=== PATIENT | male | born 1960 | race Caucasian/White ===

== ENCOUNTER 2021-07-19 19:59 | Inpatient (IN) | payer MEDICARE, MEDICAID, SELFPAY ==
[2021-07-19 20:15] VITALS: BP 122/71; PULSE 91; RESP 22; TEMP 35.5; O2SAT 88; O2SAT 89
--- NOTE | 2021-07-19 22:47 | HPE_ITS ---
Date of service: 07/19/21 Time of Service: 22:47 Assessment and Plan Assessment and plan (1) COVID: Status: Acute Assessment and plan: He seems to be stable currently on oxygen. Will be continued on dexamethasone daily. I am checking other labs but at this time I do not think he needs antibiotics for bacterial infection. We will recheck labs tomorrow. (2) Obesity: Status: Chronic Assessment and plan: This obesity could complicate his recovery from Covid. It would make him a higher risk for complications. (3) Renal failure: Status: Chronic Assessment and plan: I talked with the staff at [facility] and his creatinine 2 weeks ago was 2.0. They said he had no other labs and their system. This will be rechecked tomorrow. (4) LBBB (left bundle branch block): Status: Acute Assessment and plan: I developed this left bundle branch block pattern is new today or not. We have asked for previous electrocardiograms. History of Present Illness History of Present Illness Chief Complaint: hemoptysis Narrative: This 61-year-old male was transferred here from [facility] because of coronavirus 19 infection. He received his immunizations monitoring of 2 doses in November and December of this year. He states that for the last 2 days he has had a coppery taste in his mouth. He has not had a cough but today he did have a productive sputum of some hemoptysis and mucus. He went to [facility] he was evaluated and was found to have O2 saturations of 84% on 2 L nasal cannula. He had a follow-up on his second left toe amputation with orthopedics 2 days ago in [facility] and was told that his oxygen levels were low. He has been on oxygen for the last 3 years due to his chronic obstructive lung disease and says he has not been on oxygen for the last month. He has had no known Covid exposure that he is aware of. His who he lives with has been sick with an upper respiratory infection. He has not been consistent with wearing masks around town. He presented to the [facility] today is blood pressure was a bit low at 90/50 and with intravenous fluids the blood pressure came up to 100/60. By report the creatinine level down July 03 was 2.0 but it was up to 2.8 today. He has had 3 pneumococcal vaccines with the last one being done in 2019 and a flu shot was done in May of last year. He was hoping to get his booster vaccine of the Covid soon. He normally goes to the [facility] but the doctor at the [facility] dental said that they could not reach the [facility] about transferring a letter. At [facility] he did receive Decadron, cefepime and vancomycin. He has chronic medical problems of coronary artery disease, diabetes mellitus obesity sleep apnea COPD, sciatica restless legs and hypertension. Review of Systems Constitutional Constitutional: Denies chills, Denies fatigue and Denies fever(s) Cardiovascular Cardiovascular: Denies chest pain and Denies dyspnea Respiratory Respiratory: Reports cough, Reports hemoptysis and Denies dyspnea Gastrointestinal Gastrointestinal: Denies diarrhea, Denies loose stools, Denies nausea and Denies vomiting Genitourinary Genitourinary: Denies dysuria, Denies urinary frequency and Denies urinary hesitancy Musculoskeletal Musculoskeletal: Denies muscle weakness Endocrine Endocrine: Denies fatigue [facility] Medical History (Updated 07/19/21 @ 22:57 by Trevon Bee MD) CAD (coronary artery disease) COPD (chronic obstructive pulmonary disease) (~09/07/19) Diabetes mellitus (~09/07/19) Hypertension (~09/07/19) Obesity ALEJANDRA (obstructive sleep apnea) (~09/07/19) Restless leg Sciatic leg pain Social History Smoking/Tobacco Use Status: Former Tobacco Use Smoking risk assessment performed?: Yes Meds Allergies and Home Medications Allergies Allergy/AdvReac Type Severity Reaction Status Date / Time codeine Allergy Unverified 07/19/21 21:15 Gadolinium-Containing Allergy Unverified 07/19/21 21:15 Contrast Medi Penicillins Allergy Unverified 07/19/21 21:16 Home Medications Medication Instructions Recorded Confirmed Type acetaminophen 500 mg PO Q6H PRN 07/19/21 07/19/21 History albuterol sulfate [ProAir HFA] 2 puff INHALATION BID PRN 07/19/21 07/19/21 History atorvastatin 40 mg PO DAILY 07/19/21 07/19/21 History cholecalciferol (vitamin D3) 25 mcg PO DAILY 07/19/21 07/19/21 History [Vitamin D3] fexofenadine [Ashanti Allergy] 180 mg PO BID 07/19/21 07/19/21 History tetkhtnbphl-inxylpaha-eiarliva 1 inh INHALATION DAILY 07/19/21 07/19/21 History [Trelegy Ellipta] gabapentin 600 mg PO BID 07/19/21 07/19/21 History glipizide 20 mg PO HS 07/19/21 07/19/21 History hydrochlorothiazide 25 mg PO DAILY 07/19/21 07/19/21 History lisinopril 40 mg PO DAILY 07/19/21 07/19/21 History metformin 500 mg PO BID 07/19/21 07/19/21 History metoprolol tartrate 150 mg PO BID 07/19/21 07/19/21 History bvnekqpo-aps-wxacarm fumarate See Rx Instructions .ROUTE .COMPLEX 07/19/21 History [Multi Vitamin] nitroglycerin [Nitrostat] 0.4 mg SUBLINGUAL Q5-15M PRN 07/19/21 07/19/21 History omega 7-isu-yhm-fish oil [Fish Oil] cap PO BID 07/19/21 History omeprazole 20 mg PO DAILY 07/19/21 07/19/21 History ropinirole 4 mg PO QHS 07/19/21 07/19/21 History tamsulosin 0.4 mg PO DAILY 07/19/21 07/19/21 History Exam Const General: cooperative, comfortable and no acute distress Nutritional Appearance: obese Orientation: alert and awake Neck Neck: normal visual inspection and no lymphadenopathy Thyroid: thyroid normal Resp Auscultation: rales, no rhonchi and no wheezes Other: Rales are present in the left midlung field. It is clear otherwise in both lungs. Cardio Rate: regular rate Rhythm: regular rhythm Heart Sounds: S1 normal, S2 normal, no gallops and no murmurs GI Palpation: soft, no hepatosplenomegaly, not rigid and nontender Neuro General: patient alert, patient awake and patient oriented x3 Cognition: normal cognition Extrem General: no pedal edema Results Labs Result diagrams: 07/19/21 22:19 07/19/21 22:20 Last Vital Signs Temp 35.5 C L 07/19/21 20:15 Pulse 91 H 07/19/21 20:15 Resp 22 07/19/21 20:15 BP 122/71 07/19/21 20:15 Pulse Ox 88 L 07/19/21 20:15
[2021-07-19 23:04] LABS: Abs Immature Grans 0.06 10^3/uL (0.0-0.06); Absolute Basophil Count 0.01 10^3/uL (0.0-0.2); Absolute Lymphocyte Count 0.49 10^3/uL (1.2-3.4); Absolute Monocyte Count 0.17 10^3/uL (0.1-0.8); Absolute Neutrophil Count 5.27 10^3/uL (1.2-6.7); Basophils % 0.2; HCT 42.6 % (40.0-50.0); HGB 13.9 g/dL (13.5-17.5); Lymphocytes % 8.2; MCH 28.2 pg (27.0-33.0); MCHC 32.6 % (32.0-36.0); MCV 86.4 fL (80-95); Monocytes % 2.8; Neutrophils % 87.8; Nucleated RBC 0 %; Platelet Count 142 10^3/uL (130-400); RBC 4.93 10^6/uL (4.36-5.78); RDW 14.9 % (11.8-14.1); RDW-SD 47.7 fL
[2021-07-19 23:20] LABS: ALT 41 U/L (16-63); AST 39 U/L (15-37); Albumin 2.8 g/dL (3.4-5.0); Alkaline Phosphatase 55 U/L (46-116); Anion Gap 12.8 mmol/L (3-11); BUN 54 mg/dL (7-18); Bilirubin, Total 0.6 mg/dL (0.2-1.0); C-Reactive Protein 7.91 mg/dL (0.0-0.3); CO2 20.2 mmol/L (21.0-32.0); CREATININE 2.1 mg/dL (0.70-1.30); Calcium 8.2 mg/dL (8.5-10.1); Chloride 104 mmol/L (98-107); Creatine Kinase 181 U/L (39-308); Estimated GFR 32.06 (mL/min/1.73m2); Glucose 218 mg/dL (74-106); LDH 328 U/L (85-227); Sodium 137 mmol/L (136-145); Total Protein 6.9 g/dL (6.4-8.2)
[2021-07-19 23:22] LABS: PTT Activated 28.8 sec (21.0-27.5)
[2021-07-19 23:33] VITALS: BP 112/68; PULSE 85; RESP 20; TEMP 35.3; O2SAT 90
[2021-07-19 23:39] LABS: Procalcitonin 0.1 ng/mL
[2021-07-19] MEDS: Normal Saline Flush 10 ML SYR IVP (23:45)
[2021-07-19 23:53] LABS: D-Dimer 1580 ng/mlFEU (<500)
[2021-07-20] VITALS (45 sets, daily range): BP systolic 89–131; BP diastolic 42–77; PULSE 68–89; RESP 15–26; TEMP 35.1–37.9; O2SAT 86–95
[2021-07-20] MEDS: rOPINIRole 0.5 MG TAB (00:58)
--- NOTE | 2021-07-20 04:47 | RESPIRATORY ---
Pt will contact in morning to bring home CPAP unit for NOC use.
[2021-07-20] MEDS: Fexofenadine 180 MG TAB PO ×2 (09:25→19:59)
[2021-07-20] MEDS: Metoprolol 50 MG TAB 150 MG PO ×2 (09:25→19:59)
[2021-07-20] MEDS: Tamsulosin 0.4 MG CAPCR PO (09:26)
[2021-07-20] MEDS: Omeprazole 20 MG CAPCR PO (09:26)
[2021-07-20] MEDS: Atorvastatin 40 MG TAB PO (09:26)
[2021-07-20] MEDS: Enoxaparin 30 MG/0.3 ML SYR SC (09:27)
[2021-07-20] MEDS: Gabapentin 300 MG CAP 600 MG PO ×2 (09:27→19:59)
[2021-07-20] MEDS: Dexamethasone 10 MG/ML VIAL 6 MG IVP (09:37)
[2021-07-20] MEDS: REMDESIVIR 200 MG in Normal Saline 250 ML 250 MG IVPB (09:55)
[2021-07-20] MEDS: hydroCHLOROthiazide 25 MG TAB PO (09:56)
[2021-07-20] MEDS: Insulin Aspart 300 UNITS/3 ML PEN SC ×3 (09:58→23:01)
[2021-07-20 10:25] LABS: Abs Immature Grans 0.05 10^3/uL (0.0-0.06); Absolute Basophil Count 0.01 10^3/uL (0.0-0.2); Absolute Lymphocyte Count 0.52 10^3/uL (1.2-3.4); Absolute Monocyte Count 0.43 10^3/uL (0.1-0.8); Absolute Neutrophil Count 3.42 10^3/uL (1.2-6.7); Basophils % 0.2; HCT 46.5 % (40.0-50.0); Immature Grans % 1.1; Lymphocytes % 11.7; MCH 27.7 pg (27.0-33.0); MCHC 32.3 % (32.0-36.0); MCV 85.8 fL (80-95); MPV 11.1 fL (8.0-11.0); Monocytes % 9.7; Neutrophils % 77.3; Nucleated RBC 0 %; Platelet Count 182 10^3/uL (130-400); RBC 5.42 10^6/uL (4.36-5.78); RDW 14.8 % (11.8-14.1); RDW-SD 46.7 fL; WBC 4.43 10^3/uL (4.4-10.8)
[2021-07-20 10:39] LABS: Anion Gap 11.8 mmol/L (3-11); BUN 46 mg/dL (7-18); C-Reactive Protein 7.35 mg/dL (0.0-0.3); CO2 22.2 mmol/L (21.0-32.0); CREATININE 1.7 mg/dL (0.70-1.30); Calcium 9.1 mg/dL (8.5-10.1); Chloride 105 mmol/L (98-107); Creatine Kinase 139 U/L (39-308); Estimated GFR 40.91 (mL/min/1.73m2); Glucose 169 mg/dL (74-106); Potassium 4.7 mmol/L (3.5-5.1); Sodium 139 mmol/L (136-145)
[2021-07-20 10:49] LABS: ALT 47 U/L (16-63); AST 37 U/L (15-37); Albumin 3.1 g/dL (3.4-5.0); Alkaline Phosphatase 59 U/L (46-116); Bilirubin, Direct 0.3 mg/dL (0.0-0.2); Bilirubin, Total 0.8 mg/dL (0.2-1.0); Magnesium 2.4 mg/dL (1.8-2.4); NT-proBNP 713 pg/mL (<300); TSH (W/Ref FT4) 0.87 uIU/mL (0.36-3.74)
--- NOTE | 2021-07-20 10:56 | NUR.NOTE ---
Nursing Note: Patient up to bedside commode and noted to have increase shortness of breath, o2 saturation decreased into low 80's, nurse increase oxygen to 10 liters, encouraged deep breathing, o2 saturation increased to 93%. Patient completed bowel movement and voided. Nurse used walker for safety and support, patient back in bed with minimal decrease in O2 saturation though patient noted to be short of breath. Once in bed oxygen reduced to 6 liter, O2 sat 91%, nurse will update team.
[2021-07-20 11:17] LABS: D-Dimer 1768 ng/mlFEU (<500)
[2021-07-20 11:33] LABS: Ferritin 1676 ng/mL (26-388)
--- NOTE | 2021-07-20 13:04 | PDOC.CMIN ---
- If Service Date Differs Date of service: 07/20/21 Time of Service: 13:04 Care Management Initial Assess REASON FOR HOSPITALIZATION:: Covid Pneumonia PAST MEDICAL HISTORY/PAST SURGICAL HISTORY:: Medical History (Updated 07/19/21 @ 22:57 by Trevon Bee MD). CAD (coronary artery disease). COPD (chronic obstructive pulmonary disease) (~09/07/19). Diabetes mellitus (~09/07/19). Hypertension (~09/07/19). Obesity. ALEJANDRA (obstructive sleep apnea) (~09/07/19). Restless leg. Sciatic leg pain PREVIOUS FUNCTIONAL STATUS/SOCIAL/FAMILY SUPPORTS:: Trevon lives in a single family home in [place], [place] with his Randi. Trevon has one son who lives in [place] and Randi has a son and a daughter. Her son lives out of state and her daughter is in [place] but they rarely visit. Trevon has been disabled since the when he was injured in the . He uses a cane for ambulation and has a stair lift provided by the [facility]. CURRENT FUNCTIONAL STATUS:: CLIVE was unable to meet with Trevon as her is on Covid isolation. He was admitted to Med-Surg but was transferred to ICU this afternoon when his breathing became more difficult. CLIVE was able to speak to his Randi on the phone. She stated that she is well and has tested negative for Covid. She is fully vaccinated against Covid as was Trevon. ADVANCE DIRECTIVES:: Trevon does not have advanced directives. CM will discuss when he is more stable. Has patient been provided with info about the portal/API?: Yes Did the patient sign up for the portal?: No CODE STATUS:: Full Code INSURANCE COVERAGE / FINANCIAL ISSUES:: Medicare. Medicaid CURRENT HOME/COMMUNITY SERVICES/EQUIPMENT:: cane and a stair lift PRIMARY CARE PHYSICIAN:: Dr. Trevon Hart [facility] [place] POTENTIAL DISCHARGE NEEDS:: Follow up with PCP and plan of care PATIENT/FAMILY EDUCATION NEEDS:: Review discharge instructions, medications, activity, limitations, Ask Me Three TRANSPORTATION:: likely via private vehicle with PLAN:: Trevon will likely be discharged home, possibly with new home health services, when medically cleared. He will follow up with his PCP and plan of care and transport with his . CM will continue to support Shorty and assess for discharge planning concerns.
[2021-07-20 13:09] LABS: BE -5 mmol/L (-2-3); HCO3 20 mmol/L (22-26); pCO2 32 mmHg (35-45); pO2 46 mmHg (80-105); sO2 84 % (95-98); tCO2 17 mmol/L (23-27)
[2021-07-20 13:11] LABS: FIO2L 6 L; Site Left Radial
--- NOTE | 2021-07-20 13:32 | PGE_ITS ---
Date of Service Date of service: 07/20/21 Time of Service: 13:32 Assessment and Plan Assessment and plan (1) Pneumonia due to COVID-19 virus: Status: Acute Assessment and plan: Resulting in acute on possibly chronic hypoxic respiratory failure. He is fully vaccinated against COVID-19 (last dose in December of 2020, Moderna). The patient stopped wearing O2 1.5 years ago, he states, because the doctors told him to dial back on it, but [facility]. The patient remains hypoxemic despite 6L of O2 by MI. He is being transferred to the ICU for CPAP therapy. Continue remdesivir, dexamethasone, and baricitinib. Supplement Vitamin C, D. He is full code as confirmed by my conversation with him. (2) Acute respiratory failure with hypoxia: Status: Acute Assessment and plan: As above (3) ALEJANDRA (obstructive sleep apnea): Status: Chronic Assessment and plan: Provide home CPAP, though the settings may have to be adjusted due to COVID-19. (4) LBBB (left bundle branch block): Status: Chronic Assessment and plan: This was reviewed with [facility] cardiology by [facility]: LBBB is old. Repeat troponin. As far as I can tell, he had negative troponins in [facility]. Continue home therapy (resume fish oil, statin). Will clarify if the patient is on ASA. (5) COPD (chronic obstructive pulmonary disease): Status: Chronic Assessment and plan: Not clearly in acute exacerbation. Will monitor. On trelegy at home. Will cover with symbicort +combivent here. (6) Acute kidney injury superimposed on chronic kidney disease: Status: Acute Assessment and plan: Improved. Suspect I can resume home ACEi tomorrow. (7) Diabetes mellitus: Status: Chronic Assessment and plan: D/c glipizide. Continue to hold metformin. Cover with SSI. (8) Hemoptysis: Status: Resolved Assessment and plan: PE ruled out by CTA at [facility], per admitting provider. We are awaiting this imaging. Continue to monitor. Will resume fish oil. Continue enoxaparin. (9) Discharge planning issues: Status: Acute Assessment and plan: Full code Transfer to the ICU. Total Critical Care Time 60 minutes. (10) DVT prophylaxis: Status: Acute Assessment and plan: Enoxaparin SC Subjective Subjective Interval history since last seen: The patient states he has not seen any more blood in what he has coughed up. In fact, he denies sputum production since arrival to the hospital. Denies dizziness, chest pain, shortness of breath, nausea. Per nursing/RT, has not been able to prone. The patient agrees to alternate sides and I specifically asked him not to lay on his back and explained why. He verbalized understanding. He is full code. On ABG, his O2 sat was 84% and pO2 was 46 mmHg while on 6L of O2 by NC (has been on this for 1 hr). He agrees to transfer to the ICU. His CPAP was brought in. [facility]. He is upset that his joanie art and his underwear were not allowed in from home. Exam Narrative Exam Narrative: General: Pleasant obese male who is laying flat on his back when I arrived to his room, on NC at 6L, A&Ox3, no dyspnea/tachypnea/cyanosis HEENT: EOMI, MMM Heart: RRR, no m/r/g Lungs: faint rhonchi B Abdomen: soft, obese, nontender Extremities: no edema BLE's, L foot dressed - c/d/i Objective Last Vital Signs Temp 36 C L 07/20/21 11:02 Pulse 80 07/20/21 11:02 Resp 16 07/20/21 11:02 BP 113/65 07/20/21 11:02 Pulse Ox 91 L 07/20/21 11:02 Laboratory Results - last 24 hr 07/19/21 07/19/21 07/19/21 22:55 22:55 22:55 WBC 6.00 RBC 4.93 Hgb 13.9 Hct 42.6 MCV 86.4 MCH 28.2 MCHC 32.6 RDW 14.9 H Plt Count 142 MPV 11.0 Immature Gran % 1.0 Neutrophils % 87.8 Lymphocytes % 8.2 Monocytes % 2.8 Eosinophils % 0.0 Basophils % 0.2 Nucleated RBC % 0 Absolute Neutrophils 5.27 Absolute Lymphocytes 0.49 L Absolute Monocytes 0.17 Absolute Eosinophils 0.00 Absolute Basophils 0.01 PT INR APTT D-Dimer 1580 H ABG Sample Site ABG pH ABG pCO2 ABG pO2 ABG HCO3 ABG Total CO2 ABG O2 Saturation ABG Base Excess Oxygen Liter Flow Sodium 137 Potassium 5.0 Chloride 104 Carbon Dioxide 20.2 L Anion Gap 12.8 H BUN 54 H Creatinine 2.1 H Estimated GFR/1.73 m2 32.06 Glucose 218 H Calcium 8.2 L Magnesium Ferritin Total Bilirubin 0.6 Conjugated Bilirubin AST 39 H ALT 41 Alkaline Phosphatase 55 Lactate Dehydrogenase Creatine Kinase C-Reactive Protein 7.91 H NT-Pro-B Natriuret Pep Total Protein 6.9 Albumin 2.8 L Procalcitonin TSH 07/19/21 07/19/21 07/19/21 22:55 22:55 22:55 WBC RBC Hgb Hct MCV MCH MCHC RDW Plt Count MPV Immature Gran % Neutrophils % Lymphocytes % Monocytes % Eosinophils % Basophils % Nucleated RBC % Absolute Neutrophils Absolute Lymphocytes Absolute Monocytes Absolute Eosinophils Absolute Basophils PT 10.0 INR 1.0 APTT D-Dimer ABG Sample Site ABG pH ABG pCO2 ABG pO2 ABG HCO3 ABG Total CO2 ABG O2 Saturation ABG Base Excess Oxygen Liter Flow Sodium Potassium Chloride Carbon Dioxide Anion Gap BUN Creatinine Estimated GFR/1.73 m2 Glucose Calcium Magnesium Ferritin Total Bilirubin Conjugated Bilirubin AST ALT Alkaline Phosphatase Lactate Dehydrogenase 328 H Creatine Kinase 181 C-Reactive Protein NT-Pro-B Natriuret Pep Total Protein Albumin Procalcitonin 0.1 TSH 07/19/21 07/20/21 07/20/21 22:55 10:05 10:05 WBC RBC Hgb Hct MCV MCH MCHC RDW Plt Count MPV Immature Gran % Neutrophils % Lymphocytes % Monocytes % Eosinophils % Basophils % Nucleated RBC % Absolute Neutrophils Absolute Lymphocytes Absolute Monocytes Absolute Eosinophils Absolute Basophils PT INR APTT 28.8 H D-Dimer ABG Sample Site ABG pH ABG pCO2 ABG pO2 ABG HCO3 ABG Total CO2 ABG O2 Saturation ABG Base Excess Oxygen Liter Flow Sodium 139 Potassium 4.7 Chloride 105 Carbon Dioxide 22.2 Anion Gap 11.8 H BUN 46 H Creatinine 1.7 H Estimated GFR/1.73 m2 40.91 Glucose 169 H Calcium 9.1 Magnesium 2.4 Ferritin 1676 H Total Bilirubin 0.8 Conjugated Bilirubin 0.3 H AST 37 ALT 47 Alkaline Phosphatase 59 Lactate Dehydrogenase Creatine Kinase 139 C-Reactive Protein 7.35 H NT-Pro-B Natriuret Pep 713 H Total Protein 8.0 Albumin 3.1 L Procalcitonin TSH 0.87 07/20/21 07/20/21 07/20/21 10:05 10:05 13:02 WBC 4.43 RBC 5.42 Hgb 15.0 Hct 46.5 MCV 85.8 MCH 27.7 MCHC 32.3 RDW 14.8 H Plt Count 182 MPV 11.1 H Immature Gran % 1.1 Neutrophils % 77.3 Lymphocytes % 11.7 Monocytes % 9.7 Eosinophils % 0.0 Basophils % 0.2 Nucleated RBC % 0 Absolute Neutrophils 3.42 Absolute Lymphocytes 0.52 L Absolute Monocytes 0.43 Absolute Eosinophils 0.00 Absolute Basophils 0.01 PT INR APTT D-Dimer 1768 H ABG Sample Site Left Radial ABG pH 7.40 ABG pCO2 32 L ABG pO2 46 L ABG HCO3 20 L ABG Total CO2 17 L ABG O2 Saturation 84 L ABG Base Excess -5 L Oxygen Liter Flow 6 Sodium Potassium Chloride Carbon Dioxide Anion Gap BUN Creatinine Estimated GFR/1.73 m2 Glucose Calcium Magnesium Ferritin Total Bilirubin Conjugated Bilirubin AST ALT Alkaline Phosphatase Lactate Dehydrogenase Creatine Kinase C-Reactive Protein NT-Pro-B Natriuret Pep Total Protein Albumin Procalcitonin TSH
[2021-07-20 14:31] LABS: Troponin I < 0.05 ng/mL (<0.06)
[2021-07-20] MEDS: Ipratropium/Albuterol 4 GM 120 PUFF INH IH ×2 (16:59→19:59)
--- NOTE | 2021-07-20 18:00 | RESPIRATORY ---
Pt has his own home BiPAP unit through [facility]. [id number] Auto BiPAP Max IPAP: 20 cmH2O Min EPAP: 10 cmH2O PS: 5 No O2 bleed in Mouth-mask wiht integrated nasal pillows. Size Small. Pt also uses home O2, 2L via nasal cannula. Pt reported that he stopped using it for a while and recently started using it again. Home O2 is through [facility] and distributed through [id number].
[2021-07-20] MEDS: Budesonide/Formoterol 80/4.5 6.9 GM 60 PUFF INH IH (19:58)
[2021-07-20] MEDS: Ascorbic Acid 500 MG TAB 1000 MG PO (19:59)
[2021-07-20] MEDS: rOPINIRole 1 MG TAB 4 MG PO (22:03)
[2021-07-20] MEDS: Melatonin 3 MG TAB PO (22:03)
[2021-07-21] VITALS (70 sets, daily range): BP systolic 83–139; BP diastolic 43–89; PULSE 64–90; RESP 9–29; TEMP 35.8–36.9; O2SAT 82–95
[2021-07-21 07:03] LABS: Abs Immature Grans 0.13 10^3/uL (0.0-0.06); Absolute Basophil Count 0.02 10^3/uL (0.0-0.2); Absolute Lymphocyte Count 0.92 10^3/uL (1.2-3.4); Absolute Monocyte Count 0.77 10^3/uL (0.1-0.8); Basophils % 0.2; HCT 46.2 % (40.0-50.0); HGB 15.1 g/dL (13.5-17.5); Immature Grans % 1.6; Lymphocytes % 11.2; MCHC 32.7 % (32.0-36.0); MCV 85.7 fL (80-95); MPV 10.5 fL (8.0-11.0); Monocytes % 9.4; Neutrophils % 77.6; Nucleated RBC 0 %; Platelet Count 221 10^3/uL (130-400); RBC 5.39 10^6/uL (4.36-5.78); RDW 14.5 % (11.8-14.1); RDW-SD 45.3 fL; WBC 8.18 10^3/uL (4.4-10.8)
[2021-07-21 07:08] LABS: Absolute Neutrophil Count 6.35 10^3/uL (1.2-6.7)
[2021-07-21 07:22] LABS: ALT 34 U/L (16-63); AST 29 U/L (15-37); Alkaline Phosphatase 58 U/L (46-116); Anion Gap 10.9 mmol/L (3-11); BUN 44 mg/dL (7-18); Bilirubin, Direct 0.2 mg/dL (0.0-0.2); Bilirubin, Total 0.8 mg/dL (0.2-1.0); C-Reactive Protein 3.33 mg/dL (0.0-0.3); CO2 23.1 mmol/L (21.0-32.0); CREATININE 1.5 mg/dL (0.70-1.30); Calcium 9.3 mg/dL (8.5-10.1); Chloride 104 mmol/L (98-107); Estimated GFR 47.27 (mL/min/1.73m2); Glucose 155 mg/dL (74-106); Magnesium 2.4 mg/dL (1.8-2.4); Potassium 4.5 mmol/L (3.5-5.1); Sodium 138 mmol/L (136-145); Total Protein 7.4 g/dL (6.4-8.2)
[2021-07-21] MEDS: Budesonide/Formoterol 80/4.5 6.9 GM 60 PUFF INH IH ×2 (07:45→20:01)
[2021-07-21] MEDS: Ipratropium/Albuterol 4 GM 120 PUFF INH IH ×4 (07:46→20:02)
[2021-07-21] MEDS: Metoprolol 50 MG TAB 150 MG PO ×2 (07:57→20:01)
[2021-07-21] MEDS: Multivitamin w/Minerals TAB 1 TAB PO (07:58)
[2021-07-21] MEDS: Atorvastatin 40 MG TAB PO (07:58)
[2021-07-21] MEDS: Fexofenadine 180 MG TAB PO ×2 (07:58→20:01)
[2021-07-21] MEDS: Gabapentin 300 MG CAP 600 MG PO ×2 (07:58→20:01)
[2021-07-21] MEDS: Dexamethasone 10 MG/ML VIAL 6 MG IVP (07:59)
[2021-07-21] MEDS: Omega-3 Fatty Acids 1000 MG CAP 2000 MG PO (08:00)
[2021-07-21] MEDS: Enoxaparin 40 MG/0.4 ML SYR SC (08:00)
[2021-07-21] MEDS: hydroCHLOROthiazide 25 MG TAB PO (08:00)
[2021-07-21] MEDS: Tamsulosin 0.4 MG CAPCR PO (08:03)
[2021-07-21] MEDS: Cholecalciferol (Vitamin D3) 1,000 UNIT TAB 1000 UNITS PO (08:03)
[2021-07-21] MEDS: Ascorbic Acid 500 MG TAB 1000 MG PO ×2 (08:03→20:01)
[2021-07-21] MEDS: Famotidine 20 MG TAB PO (08:04)
[2021-07-21] MEDS: Normal Saline Flush 10 ML SYR IVP ×2 (08:04→20:00)
[2021-07-21] MEDS: Insulin Aspart 300 UNITS/3 ML PEN SC ×4 (08:06→21:18)
--- NOTE | 2021-07-21 08:17 | PGE_ITS ---
Date of Service Date of service: 07/21/21 Time of Service: 11:16 Assessment and Plan Assessment and plan (1) Pneumonia due to COVID-19 virus: Status: Acute Assessment and plan: Oxygen requirement is slightly better. Wean as tolerated and encourage CPAP at night. Continue to monitor in the ICU. Continue remdesivir, dexamethasone, and baricitinib. Supplement Vitamin C, D. (2) Acute respiratory failure with hypoxia: Status: Acute Assessment and plan: As above (3) ALEJANDRA (obstructive sleep apnea): Status: Chronic Assessment and plan: Continue CPAP (with settings adjusted based on current O2 requirement). (4) LBBB (left bundle branch block): Status: Chronic Assessment and plan: This was reviewed with [facility] cardiology by [facility]: LBBB is old. Troponin negative and was negative at [facility]. Follow up as outpatient. Continue home therapy (resume fish oil, statin). (5) COPD (chronic obstructive pulmonary disease): Status: Chronic Assessment and plan: Not clearly in acute exacerbation. Will monitor. On trelegy at home. Continue symbicort +combivent here. (6) Acute kidney injury superimposed on chronic kidney disease: Status: Acute Assessment and plan: Improved. Resume home ACEi. (7) Diabetes mellitus: Status: Chronic Assessment and plan: Continue to hold metformin/glipizide. Cover with SSI. (8) Hemoptysis: Status: Resolved Assessment and plan: PE ruled out by CTA at [facility], per admitting provider. No recurrences here. Continue to monitor. TOlerating fish oil and sq enoxaparin. (9) Discharge planning issues: Status: Acute Assessment and plan: Full code Keep in ICU Total Critical Care Time 35 minutes. (10) DVT prophylaxis: Status: Acute Assessment and plan: Enoxaparin SC Subjective Subjective Interval history since last seen: Mr Ahn states he is feeling better. He is on CPAP currently. Slept for a couple of hours on CPAP (4L, pressure 11, got titrated down to 3L this am). Otherwise, when on NC, still requiring 6L. Denies dizziness, chest pain, nausea, abdominal pain, diarrhea. States his breathing is better. Exam Narrative Exam Narrative: General: Pleasant obese male, laying on his left side, wearing CPAP HEENT: EOMI, MMM Heart: RRR, no m/r/g Lungs: faint rhonchi B, improved from yesterday Abdomen: soft, obese, nontender Extremities: no edema BLE's, L foot dressed - c/d/i Objective Last Vital Signs Temp 36.9 C 07/21/21 04:00 Pulse 78 07/21/21 05:22 Resp 22 07/21/21 05:30 BP 119/75 07/21/21 05:22 Pulse Ox 90 L 07/21/21 07:53 Laboratory Results - last 24 hr 07/20/21 07/20/21 07/20/21 10:05 10:05 10:05 WBC 4.43 RBC 5.42 Hgb 15.0 Hct 46.5 MCV 85.8 MCH 27.7 MCHC 32.3 RDW 14.8 H Plt Count 182 MPV 11.1 H Immature Gran % 1.1 Neutrophils % 77.3 Lymphocytes % 11.7 Monocytes % 9.7 Eosinophils % 0.0 Basophils % 0.2 Nucleated RBC % 0 Absolute Neutrophils 3.42 Absolute Lymphocytes 0.52 L Absolute Monocytes 0.43 Absolute Eosinophils 0.00 Absolute Basophils 0.01 D-Dimer ABG Sample Site ABG pH ABG pCO2 ABG pO2 ABG HCO3 ABG Total CO2 ABG O2 Saturation ABG Base Excess Oxygen Liter Flow Sodium 139 Potassium 4.7 Chloride 105 Carbon Dioxide 22.2 Anion Gap 11.8 H BUN 46 H Creatinine 1.7 H Estimated GFR/1.73 m2 40.91 Glucose 169 H Calcium 9.1 Magnesium 2.4 Ferritin 1676 H Total Bilirubin 0.8 Conjugated Bilirubin 0.3 H AST 37 ALT 47 Alkaline Phosphatase 59 Creatine Kinase 139 Troponin I < 0.05 C-Reactive Protein 7.35 H NT-Pro-B Natriuret Pep 713 H Total Protein 8.0 Albumin 3.1 L TSH 0.87 07/20/21 07/20/21 07/21/21 10:05 13:02 06:50 WBC RBC Hgb Hct MCV MCH MCHC RDW Plt Count MPV Immature Gran % Neutrophils % Lymphocytes % Monocytes % Eosinophils % Basophils % Nucleated RBC % Absolute Neutrophils Absolute Lymphocytes Absolute Monocytes Absolute Eosinophils Absolute Basophils D-Dimer 1768 H ABG Sample Site Left Radial ABG pH 7.40 ABG pCO2 32 L ABG pO2 46 L ABG HCO3 20 L ABG Total CO2 17 L ABG O2 Saturation 84 L ABG Base Excess -5 L Oxygen Liter Flow 6 Sodium 138 Potassium 4.5 Chloride 104 Carbon Dioxide 23.1 Anion Gap 10.9 BUN 44 H Creatinine 1.5 H Estimated GFR/1.73 m2 47.27 Glucose 155 H Calcium 9.3 Magnesium 2.4 Ferritin Total Bilirubin 0.8 Conjugated Bilirubin 0.2 AST 29 ALT 34 Alkaline Phosphatase 58 Creatine Kinase Troponin I C-Reactive Protein 3.33 H NT-Pro-B Natriuret Pep Total Protein 7.4 Albumin 3.0 L TSH 07/21/21 06:50 WBC 8.18 D RBC 5.39 Hgb 15.1 Hct 46.2 MCV 85.7 MCH 28.0 MCHC 32.7 RDW 14.5 H Plt Count 221 MPV 10.5 Immature Gran % 1.6 Neutrophils % 77.6 Lymphocytes % 11.2 Monocytes % 9.4 Eosinophils % 0.0 Basophils % 0.2 Nucleated RBC % 0 Absolute Neutrophils 6.35 Absolute Lymphocytes 0.92 L Absolute Monocytes 0.77 Absolute Eosinophils 0.00 Absolute Basophils 0.02 D-Dimer ABG Sample Site ABG pH ABG pCO2 ABG pO2 ABG HCO3 ABG Total CO2 ABG O2 Saturation ABG Base Excess Oxygen Liter Flow Sodium Potassium Chloride Carbon Dioxide Anion Gap BUN Creatinine Estimated GFR/1.73 m2 Glucose Calcium Magnesium Ferritin Total Bilirubin Conjugated Bilirubin AST ALT Alkaline Phosphatase Creatine Kinase Troponin I C-Reactive Protein NT-Pro-B Natriuret Pep Total Protein Albumin TSH
[2021-07-21 08:21] LABS: Ferritin 1491 ng/mL (26-388)
[2021-07-21 08:29] LABS: D-Dimer 1310 ng/mlFEU (<500)
[2021-07-21] MEDS: Lisinopril 20 MG TAB PO (09:30)
[2021-07-21] MEDS: rOPINIRole 1 MG TAB 4 MG PO (20:22)
[2021-07-21] MEDS: Melatonin 3 MG TAB PO (20:22)
[2021-07-22] VITALS (21 sets, daily range): BP systolic 104–135; BP diastolic 56–83; PULSE 52–75; RESP 10–23; TEMP 35.9–36.4; O2SAT 88–98
[2021-07-22 02:56] LABS: Vitamin D 25 Total 39.8 ng/mL (30-100)
[2021-07-22 07:26] LABS: HCT 47.4 % (40.0-50.0); HGB 15.4 g/dL (13.5-17.5); MCH 27.5 pg (27.0-33.0); MCHC 32.5 % (32.0-36.0); MCV 84.5 fL (80-95); MPV 10.9 fL (8.0-11.0); Nucleated RBC 0 %; Platelet Count 239 10^3/uL (130-400); RBC 5.61 10^6/uL (4.36-5.78); RDW 14.6 % (11.8-14.1); RDW-SD 44.6 fL
[2021-07-22 07:41] LABS: ALT 41 U/L (16-63); AST 25 U/L (15-37); Alkaline Phosphatase 58 U/L (46-116); Anion Gap 10.3 mmol/L (3-11); BUN 42 mg/dL (7-18); Bilirubin, Direct 0.2 mg/dL (0.0-0.2); Bilirubin, Total 0.7 mg/dL (0.2-1.0); C-Reactive Protein 1.61 mg/dL (0.0-0.3); CO2 22.7 mmol/L (21.0-32.0); CREATININE 1.3 mg/dL (0.70-1.30); Calcium 9.4 mg/dL (8.5-10.1); Chloride 104 mmol/L (98-107); Estimated GFR 55.75 (mL/min/1.73m2); Glucose 141 mg/dL (74-106); Magnesium 2.2 mg/dL (1.8-2.4); Potassium 4.3 mmol/L (3.5-5.1); Sodium 137 mmol/L (136-145); Total Protein 7.5 g/dL (6.4-8.2)
[2021-07-22 07:49] LABS: Procalcitonin < 0.1 ng/mL
[2021-07-22 07:51] LABS: Absolute Lymphocyte Count 0.72 10^3/uL (1.2-3.4); Absolute Monocyte Count 0.72 10^3/uL (0.1-0.8); Atypical Lymphocytes % 1; Diff Comment Manual Differential; Metamyelocytes % 3; Myelocytes % 1
[2021-07-22 07:52] LABS: RBC Morphology Normal
[2021-07-22 08:08] LABS: Ferritin 848 ng/mL (26-388)
[2021-07-22 08:25] LABS: D-Dimer 1046 ng/mlFEU (<500)
[2021-07-22] MEDS: Ipratropium/Albuterol 4 GM 120 PUFF INH IH ×4 (08:25→17:06)
[2021-07-22] MEDS: Budesonide/Formoterol 80/4.5 6.9 GM 60 PUFF INH IH ×2 (08:25→20:46)
--- NOTE | 2021-07-22 08:34 | PGE_ITS ---
Date of Service Date of service: 07/22/21 Time of Service: 12:32 Assessment and Plan Assessment and plan (1) Pneumonia due to COVID-19 virus: Status: Acute Assessment and plan: Improved. Ok to transfer out of the ICU to [facility]. Continue to wean O2 and CPAP at night (his own). Continue remdesivir, dexamethasone, and baricitinib. Supplement Vitamin C, D. (2) Acute respiratory failure with hypoxia: Status: Acute Assessment and plan: As above (3) ALEJANDRA (obstructive sleep apnea): Status: Chronic Assessment and plan: Continue CPAP (with settings adjusted based on current O2 requirement). (4) LBBB (left bundle branch block): Status: Chronic Assessment and plan: This was reviewed with [facility] cardiology by [facility]: LBBB is old. Troponin negative and was negative at [facility]. Follow up as outpatient. Continue home therapy (fish oil, statin). (5) COPD (chronic obstructive pulmonary disease): Status: Chronic Assessment and plan: Not clearly in acute exacerbation. Will monitor. On trelegy at home. Continue symbicort +combivent here. (6) Acute kidney injury superimposed on chronic kidney disease: Status: Acute Assessment and plan: Improved. Resume home ACEi. (7) Diabetes mellitus: Status: Chronic Assessment and plan: Continue to hold metformin/glipizide. Cover with SSI. (8) Hemoptysis: Status: Resolved Assessment and plan: PE ruled out by CTA at [facility], per admitting provider. No recurrences here. Continue to monitor. Tolerating fish oil and sq enoxaparin. (9) Discharge planning issues: Status: Acute Assessment and plan: Full code Transfer out of the ICU to [facility] floor. (10) DVT prophylaxis: Status: Acute Assessment and plan: Enoxaparin SC Subjective Subjective Interval history since last seen: Mr Ahn feels better. No dizziness, chest pain, shortness of breath, nausea. Has a sense of taste and is enjoying lunch at the time of my visit. Transitioned to 3L of O2 by [place]. States that in the past, when he did require oxygen, he needed 2L of O2. Overnight, used his CPAP w/ 3L bled in x 6 hrs. Exam Narrative Exam Narrative: General: Pleasant obese male, Sitting up in a chair eating lunch, A&Ox3, looks much better. No dyspnea/tachynpea/cyanosis. COmpleting sentences on 3L of O2 by [place]. HEENT: EOMI, MMM Heart: RRR, no m/r/g Lungs: CTAB Abdomen: soft, obese, nontender. Reddened skin folds. Extremities: no edema BLE's, L foot dressed - c/d/i Objective Last Vital Signs Temp 36 C L 07/22/21 04:20 Pulse 67 07/22/21 08:00 Resp 15 07/22/21 08:00 BP 129/79 07/22/21 08:00 Pulse Ox 94 07/22/21 08:00 Laboratory Results - last 24 hr 07/21/21 07/22/21 07/22/21 06:50 07:04 07:04 WBC RBC Hgb Hct MCV MCH MCHC RDW Plt Count MPV Immature Gran % Neutrophils % Lymphocytes % Atypical Lymphs % Monocytes % Eosinophils % Basophils % Metamyelocytes % Myelocytes % Nucleated RBC % Absolute Neutrophils Absolute Lymphocytes Absolute Monocytes Absolute Eosinophils Absolute Basophils RBC Morphology D-Dimer Sodium 137 Potassium 4.3 Chloride 104 Carbon Dioxide 22.7 Anion Gap 10.3 BUN 42 H Creatinine 1.3 Estimated GFR/1.73 m2 55.75 Glucose 141 H Calcium 9.4 Magnesium 2.2 Ferritin 848 H Total Bilirubin 0.7 Conjugated Bilirubin 0.2 AST 25 ALT 41 Alkaline Phosphatase 58 C-Reactive Protein 1.61 H Total Protein 7.5 Albumin 3.0 L 25-OH Vitamin D Total 39.8 Procalcitonin < 0.1 07/22/21 07/22/21 07:04 07:04 WBC 9.00 RBC 5.61 Hgb 15.4 Hct 47.4 MCV 84.5 MCH 27.5 MCHC 32.5 RDW 14.6 H Plt Count 239 MPV 10.9 Immature Gran % See Differential Neutrophils % 80.0 Lymphocytes % 7.0 Atypical Lymphs % 1 Monocytes % 8.0 Eosinophils % 0.0 Basophils % 0.0 Metamyelocytes % 3 Myelocytes % 1 Nucleated RBC % 0 Absolute Neutrophils 7.20 H Absolute Lymphocytes 0.72 L Absolute Monocytes 0.72 Absolute Eosinophils 0.00 Absolute Basophils 0.00 RBC Morphology Normal D-Dimer 1046 H Sodium Potassium Chloride Carbon Dioxide Anion Gap BUN Creatinine Estimated GFR/1.73 m2 Glucose Calcium Magnesium Ferritin Total Bilirubin Conjugated Bilirubin AST ALT Alkaline Phosphatase C-Reactive Protein Total Protein Albumin 25-OH Vitamin D Total Procalcitonin
[2021-07-22] MEDS: Normal Saline Flush 10 ML SYR IVP (08:40)
[2021-07-22] MEDS: Omega-3 Fatty Acids 1000 MG CAP 2000 MG PO (08:41)
[2021-07-22] MEDS: Enoxaparin 40 MG/0.4 ML SYR SC (08:41)
[2021-07-22] MEDS: Dexamethasone 10 MG/ML VIAL 6 MG IVP (08:41)
[2021-07-22] MEDS: Gabapentin 300 MG CAP 600 MG PO ×2 (08:42→20:46)
[2021-07-22] MEDS: Metoprolol 50 MG TAB 150 MG PO ×2 (08:42→20:45)
[2021-07-22] MEDS: Multivitamin w/Minerals TAB 1 TAB PO (08:42)
[2021-07-22] MEDS: Fexofenadine 180 MG TAB PO ×2 (08:42→20:45)
[2021-07-22] MEDS: Ascorbic Acid 500 MG TAB 1000 MG PO ×2 (08:42→20:45)
[2021-07-22] MEDS: Tamsulosin 0.4 MG CAPCR PO (08:43)
[2021-07-22] MEDS: Famotidine 20 MG TAB PO (08:43)
[2021-07-22] MEDS: hydroCHLOROthiazide 25 MG TAB PO (08:43)
[2021-07-22] MEDS: Atorvastatin 40 MG TAB PO (08:43)
[2021-07-22] MEDS: Lisinopril 20 MG TAB PO (08:43)
[2021-07-22] MEDS: Cholecalciferol (Vitamin D3) 1,000 UNIT TAB 1000 UNITS PO (08:43)
[2021-07-22] MEDS: Insulin Aspart 300 UNITS/3 ML PEN SC ×4 (09:25→22:29)
--- NOTE | 2021-07-22 10:52 | PDOC.CMPRO ---
- If Service Date Differs Date of service: 07/22/21 Time of Service: 10:52 Care Management Progress Note S/O:Trevon was moved out of the ICU back to Med-Surg today. CM was able to speak to him on the phone and he indicated that he is feeling much better. He is very appreciative of all of the wonderful care he received while in the ICU. Trevon shared that he has not been told when he will likely be discharged but anticipates that he will be here for a few more days. He also informed CM that he does not believe he will need any services at home and, if he does, that the [place] will provide them. A: Trevon is a 61 year old man admitted on 07/19/21 with Covid positive pneumonia P:Trevon will likely be discharged home, possibly with new home health services, when medically cleared. He will follow up with his PCP and plan of care and transport with his . CM will continue to support Trevon and Randi and assess for discharge planning concerns.
--- NOTE | 2021-07-22 11:14 | NUR.NOTE ---
While assisting with minimal help for AM care, this PHYSICIAN/ALLERGY/IMMUNOLOGY noticed blood on a wash cloth. I did ask the PT if he knew where it was coming from and PT said it was a spot on his R groin area [facility] RN notified. Nursing Note:
--- NOTE | 2021-07-22 11:47 | W.NUTRFU ---
Date of service: 07/22/21 Time of Service: 11:47 Nutritional Follow up NOTE: Mr. Ahn has excellent PO intake on CHO consistent/heart healthy nutrition therapy. His BMI is 37.6 kg/m2 c/2 class 2 obesity. Blood sugars at target. No nutritional issues noted at this time. Will continue to follow. Time Spent in Nutritional Counseling and Treatment: 0
[2021-07-22] MEDS: Nystatin POWDER 60 GM JAR TP ×2 (13:08→20:47)
[2021-07-22] MEDS: rOPINIRole 1 MG TAB 4 MG PO (22:28)
[2021-07-22] MEDS: Melatonin 3 MG TAB PO (22:28)
[2021-07-23] VITALS (10 sets, daily range): BP systolic 100–125; BP diastolic 60–76; PULSE 67–82; RESP 18–86; TEMP 36.2–36.5; O2SAT 18–98
[2021-07-23 03:42] LABS: Potassium 4.2 mmol/L (3.5-5.1)
[2021-07-23 03:45] LABS: Magnesium 2.2 mg/dL (1.8-2.4)
[2021-07-23 07:44] LABS: HCT 50.8 % (40.0-50.0); HGB 16.3 g/dL (13.5-17.5); MCH 27.7 pg (27.0-33.0); MCHC 32.1 % (32.0-36.0); MCV 86.2 fL (80-95); MPV 10.7 fL (8.0-11.0); Nucleated RBC 0 %; Platelet Count 253 10^3/uL (130-400); RBC 5.89 10^6/uL (4.36-5.78); RDW 14.6 % (11.8-14.1); RDW-SD 45.9 fL; WBC 11.76 10^3/uL (4.4-10.8)
[2021-07-23 08:04] LABS: ALT 41 U/L (16-63); AST 28 U/L (15-37); Albumin 3.4 g/dL (3.4-5.0); Alkaline Phosphatase 62 U/L (46-116); Anion Gap 12.1 mmol/L (3-11); BUN 39 mg/dL (7-18); Bilirubin, Direct 0.2 mg/dL (0.0-0.2); Bilirubin, Total 0.8 mg/dL (0.2-1.0); C-Reactive Protein 1.22 mg/dL (0.0-0.3); CO2 23.9 mmol/L (21.0-32.0); CREATININE 1.3 mg/dL (0.70-1.30); Chloride 103 mmol/L (98-107); Estimated GFR 55.75 (mL/min/1.73m2); Glucose 116 mg/dL (74-106); Sodium 139 mmol/L (136-145)
[2021-07-23] MEDS: Nystatin POWDER 60 GM JAR TP ×3 (08:15→20:41)
[2021-07-23 08:16] LABS: D-Dimer 864 ng/mlFEU (<500)
[2021-07-23] MEDS: Omega-3 Fatty Acids 1000 MG CAP 2000 MG PO (08:16)
[2021-07-23] MEDS: Famotidine 20 MG TAB PO (08:16)
[2021-07-23] MEDS: Lisinopril 20 MG TAB PO (08:16)
[2021-07-23] MEDS: Tamsulosin 0.4 MG CAPCR PO (08:16)
[2021-07-23] MEDS: hydroCHLOROthiazide 25 MG TAB PO (08:16)
[2021-07-23] MEDS: Atorvastatin 40 MG TAB PO (08:16)
[2021-07-23] MEDS: Cholecalciferol (Vitamin D3) 1,000 UNIT TAB 1000 UNITS PO (08:17)
[2021-07-23] MEDS: Ascorbic Acid 500 MG TAB 1000 MG PO ×2 (08:17→20:41)
[2021-07-23] MEDS: Enoxaparin 40 MG/0.4 ML SYR SC (08:17)
[2021-07-23] MEDS: Metoprolol 50 MG TAB 150 MG PO ×2 (08:17→20:40)
[2021-07-23] MEDS: Gabapentin 300 MG CAP 600 MG PO ×2 (08:17→20:41)
[2021-07-23] MEDS: Multivitamin w/Minerals TAB 1 TAB PO (08:17)
[2021-07-23] MEDS: Fexofenadine 180 MG TAB PO ×2 (08:17→20:40)
[2021-07-23] MEDS: Normal Saline Flush 10 ML SYR IVP ×2 (08:18→10:14)
[2021-07-23] MEDS: Ipratropium/Albuterol 4 GM 120 PUFF INH IH ×4 (08:19→20:46)
[2021-07-23 08:24] LABS: Absolute Lymphocyte Count 1.76 10^3/uL (1.2-3.4); Absolute Monocyte Count 1.18 10^3/uL (0.1-0.8); Bands % 3; Diff Comment Manual Differential; Myelocytes % 1; RBC Morphology Normal
[2021-07-23 08:26] LABS: Ferritin 695 ng/mL (26-388)
[2021-07-23] MEDS: Budesonide/Formoterol 80/4.5 6.9 GM 60 PUFF INH IH ×2 (09:02→20:42)
[2021-07-23] MEDS: Dexamethasone 10 MG/ML VIAL 6 MG IVP (09:29)
--- NOTE | 2021-07-23 09:32 | CMPROGNOTE_ITS ---
- If Service Date Differs Date of service: 07/23/21 Time of Service: 10:02 Care Management Progress Note S/O: Trevon stated he does not believe he will need any services at home and, if he does, that [facility]. Per RT, he is at his baseline for oxygen requirement. He also has wound follow up scheduled with [facility] in [place], [place]. CM to connect with [place] Jacqueline Mathis RNCC to determine PCP ([facility]) to support coordination of discharge information. CM continues to follow. A: Trevon is a 61 year old man admitted on 07/19/21 with Covid positive pneumonia P: Trevon will likely be discharged home, possibly with new home health services, when medically cleared. He will follow up with his PCP and plan of care and transport with his . CM will continue to support Shorty and assess for discharge planning concerns.
[2021-07-23] MEDS: Insulin Aspart 300 UNITS/3 ML PEN SC ×3 (12:01→20:52)
--- NOTE | 2021-07-23 16:53 | PGE_ITS ---
Date of Service Date of service: 07/23/21 Time of Service: 16:53 Assessment and Plan Assessment and plan (1) Pneumonia due to COVID-19 virus: Status: Acute Assessment and plan: Improved. On 2L of O2 by [place]. Continue to wean O2 and to use CPAP at night (his own). Continue remdesivir, dexamethasone, and baricitinib. Supplement Vitamin C, D. (2) Acute respiratory failure with hypoxia: Status: Acute Assessment and plan: As above (3) ALEJANDRA (obstructive sleep apnea): Status: Chronic Assessment and plan: Continue CPAP (with settings adjusted based on current O2 requirement). (4) LBBB (left bundle branch block): Status: Chronic Assessment and plan: This was reviewed with [facility] cardiology by [facility]: LBBB is old. Troponin negative and was negative at [facility]. Follow up as outpatient. Continue home therapy (fish oil, statin). (5) COPD (chronic obstructive pulmonary disease): Status: Chronic Assessment and plan: Not clearly in acute exacerbation. Will monitor. On trelegy at home. Continue symbicort +combivent here. (6) Acute kidney injury superimposed on chronic kidney disease: Status: Acute Assessment and plan: Improved. Continue home ACEi. (7) Diabetes mellitus: Status: Chronic Assessment and plan: Continue to hold metformin/glipizide. Cover with SSI. (8) Hemoptysis: Status: Resolved Assessment and plan: PE ruled out by CTA at [facility], per admitting provider. No recurrences here. Continue to monitor. Tolerating fish oil and sq enoxaparin. (9) Discharge planning issues: Status: Acute Assessment and plan: Full code Anticipate discharge home in the next 24-48 hrs. (10) DVT prophylaxis: Status: Acute Assessment and plan: Enoxaparin SC Subjective Subjective Interval history since last seen: Hungry. On 2L of O2. No cough. No SOB. No CP. No diarrhea. BM x 3 today. Has been walking around. Exam Narrative Exam Narrative: Today's visit is a telephone visit due to patient's stability and his diagnosis of COVID-19. General: the patient is in good spirits, no dyspnea/tachypnea on the phone, speaking in full sentences. Objective Last Vital Signs Temp 36.5 C 07/23/21 08:29 Pulse 78 07/23/21 08:29 Resp 18 07/23/21 08:29 BP 104/62 07/23/21 08:29 Pulse Ox 92 07/23/21 11:40 Laboratory Results - last 24 hr 07/23/21 07/23/21 07/23/21 03:15 03:15 05:35 WBC RBC Hgb Hct MCV MCH MCHC RDW Plt Count MPV Immature Gran % Neutrophils % Band Neutrophils % Lymphocytes % Monocytes % Eosinophils % Basophils % Myelocytes % Nucleated RBC % Absolute Neutrophils Absolute Lymphocytes Absolute Monocytes Absolute Eosinophils Absolute Basophils RBC Morphology D-Dimer Sodium Potassium 4.2 Chloride Carbon Dioxide Anion Gap BUN Creatinine Estimated GFR/1.73 m2 Glucose Calcium Magnesium 2.2 Cancelled Ferritin Total Bilirubin Conjugated Bilirubin AST ALT Alkaline Phosphatase C-Reactive Protein Total Protein Albumin 07/23/21 07/23/21 07/23/21 07:01 07:01 07:01 WBC 11.76 H D RBC 5.89 H Hgb 16.3 Hct 50.8 H MCV 86.2 MCH 27.7 MCHC 32.1 RDW 14.6 H Plt Count 253 MPV 10.7 Immature Gran % See Differential Neutrophils % 71.0 Band Neutrophils % 3 Lymphocytes % 15.0 Monocytes % 10.0 Eosinophils % 0.0 Basophils % 0.0 Myelocytes % 1 Nucleated RBC % 0 Absolute Neutrophils 8.70 H Absolute Lymphocytes 1.76 Absolute Monocytes 1.18 H Absolute Eosinophils 0.00 Absolute Basophils 0.00 RBC Morphology Normal D-Dimer 864 H Sodium 139 Potassium 4.0 Chloride 103 Carbon Dioxide 23.9 Anion Gap 12.1 H BUN 39 H Creatinine 1.3 Estimated GFR/1.73 m2 55.75 Glucose 116 H Calcium 10.0 Magnesium Ferritin 695 H Total Bilirubin 0.8 Conjugated Bilirubin 0.2 AST 28 ALT 41 Alkaline Phosphatase 62 C-Reactive Protein 1.22 H Total Protein 8.0 Albumin 3.4
[2021-07-23] MEDS: Acetaminophen 325 MG TAB 650 MG PO (20:40)
[2021-07-23] MEDS: Melatonin 3 MG TAB PO (20:41)
[2021-07-23] MEDS: rOPINIRole 1 MG TAB 4 MG PO (21:46)
[2021-07-24] VITALS (13 sets, daily range): BP systolic 90–117; BP diastolic 48–67; PULSE 61–78; RESP 15–20; TEMP 35.9–36.5; O2SAT 90–98
[2021-07-24] MEDS: Fexofenadine 180 MG TAB PO ×2 (08:15→20:01)
[2021-07-24] MEDS: Cholecalciferol (Vitamin D3) 1,000 UNIT TAB 1000 UNITS PO (08:15)
[2021-07-24] MEDS: Multivitamin w/Minerals TAB 1 TAB PO (08:15)
[2021-07-24] MEDS: Omega-3 Fatty Acids 1000 MG CAP 2000 MG PO (08:15)
[2021-07-24] MEDS: Lisinopril 20 MG TAB PO (08:16)
[2021-07-24] MEDS: hydroCHLOROthiazide 25 MG TAB PO (08:17)
[2021-07-24] MEDS: Tamsulosin 0.4 MG CAPCR PO (08:17)
[2021-07-24] MEDS: Gabapentin 300 MG CAP 600 MG PO ×2 (08:18→20:05)
[2021-07-24] MEDS: Famotidine 20 MG TAB PO (08:18)
[2021-07-24] MEDS: Atorvastatin 40 MG TAB PO (08:19)
[2021-07-24] MEDS: Normal Saline Flush 10 ML SYR IVP (08:21)
[2021-07-24] MEDS: Budesonide/Formoterol 80/4.5 6.9 GM 60 PUFF INH IH ×2 (08:22→20:09)
[2021-07-24] MEDS: Enoxaparin 40 MG/0.4 ML SYR SC (08:35)
[2021-07-24] MEDS: Ipratropium/Albuterol 4 GM 120 PUFF INH IH ×4 (08:45→20:06)
[2021-07-24] MEDS: Ascorbic Acid 500 MG TAB 1000 MG PO ×2 (09:51→20:05)
[2021-07-24] MEDS: Lactated Ringers 500 ML IV (10:00)
[2021-07-24] MEDS: Dexamethasone 10 MG/ML VIAL 6 MG IVP (10:04)
--- NOTE | 2021-07-24 10:20 | PDOC.CMPRO ---
- If Service Date Differs Date of service: 07/24/21 Time of Service: 10:20 Care Management Progress Note S/O: CM spoke with Trevon over the phone since he remains on Covid-19 precautions. Trevon stated he does not believe he will need any services at home and, if he [facility] His PCP is Dr. Trevon Alicea from the [place] in [place], [place]. Trevon wants to go home. Per RT, he is at his baseline for oxygen requirement. A walking assessment will be done by RT today. Additionally, Trevon has a wound follow up scheduled with [facility] in [place], [place]. CM continues to follow. A: Trevon is a 61 year old man admitted on 07/19/21 with Covid positive pneumonia P: Trevon will likely be discharged home, possibly with new home health services, when medically cleared. He will follow up with his PCP and plan of care and transport with his . CM will continue to support Trevon and Randi and assess for discharge planning concerns.
[2021-07-24] MEDS: Insulin Aspart 300 UNITS/3 ML PEN SC ×3 (12:13→22:15)
--- NOTE | 2021-07-24 15:57 | W.PM.PROGNOT ---
Date of Service Date of service: 07/24/21 Time of Service: 15:58 Assessment and Plan Assessment and plan (1) Pneumonia due to COVID-19 virus: Status: Acute Assessment and plan: Improved. On 2L of O2 by [place]. Continue to wean O2 and to use CPAP at night (his own). Continue dexamethasone, and baricitinib. I am concerned about his hypotension: concern for side effect of remdesivir vs myocarditis. Supplement Vitamin C, D. (2) Acute respiratory failure with hypoxia: Status: Acute Assessment and plan: As above (3) ALEJANDRA (obstructive sleep apnea): Status: Chronic Assessment and plan: Continue CPAP (with settings adjusted based on current O2 requirement). (4) LBBB (left bundle branch block): Status: Chronic Assessment and plan: This was reviewed with [facility] cardiology by [facility]: LBBB is old. Troponin negative and was negative at [facility]. Follow up as outpatient. Continue home therapy (fish oil, statin). (5) COPD (chronic obstructive pulmonary disease): Status: Chronic Assessment and plan: Not clearly in acute exacerbation. Will monitor. On trelegy at home. Continue symbicort +combivent here. (6) Acute kidney injury superimposed on chronic kidney disease: Status: Acute Assessment and plan: Improved. Continue home ACEi. (7) Diabetes mellitus: Status: Chronic Assessment and plan: Continue to hold metformin/glipizide. Cover with SSI. (8) Hemoptysis: Status: Resolved Assessment and plan: PE ruled out by CTA at [facility], per admitting provider. No recurrences here. Continue to monitor. Tolerating fish oil and sq enoxaparin. (9) Discharge planning issues: Status: Acute Assessment and plan: Full code Anticipate discharge home tomorrow with his active O2 prescription. (10) DVT prophylaxis: Status: Acute Assessment and plan: Enoxaparin SC Subjective Subjective Interval history since last seen: Mr Ahn states that he is feeling well and would like to go home. He understands that I am concerned that all of a sudden he is hypotensive even though all his BP meds were held. I explained to him that it could have been a side effect of remdesivir or, what is even more worrisome, myocarditis, that I had ordered an echocardiogram and was hoping to see the results of it before his discharge home. He is saturating 90% on 2L of O2 while walking. [facility] that [facility] is [facility]. He denies dizziness, chest pain, shortness of breath, nausea. He agrees to stay through tomorrow. Exam Narrative Exam Narrative: Today's visit is a telephone visit due to patient's stability and his diagnosis of COVID-19. General: the patient is in good spirits, no dyspnea/tachypnea on the phone, speaking in full sentences. Objective Last Vital Signs Temp 35.9 C L 07/24/21 15:24 Pulse 69 07/24/21 15:24 Resp 18 07/24/21 15:24 BP 117/67 07/24/21 15:24 Pulse Ox 95 07/24/21 15:24
[2021-07-24] MEDS: Metoprolol 50 MG TAB 150 MG PO (20:07)
[2021-07-24] MEDS: Melatonin 3 MG TAB PO (22:14)
[2021-07-24] MEDS: rOPINIRole 1 MG TAB 4 MG PO (22:14)
[2021-07-25] VITALS (9 sets, daily range): BP systolic 90–126; BP diastolic 59–82; PULSE 64–79; RESP 14–18; TEMP 35.3–36.5; O2SAT 92–97
--- NOTE | 2021-07-25 | DI.CT_ITS ---
Exam(s) CT CHEST PE CTA EXAM: CT CHEST PE CTA CLINICAL HISTORY: concern for pulmonary embolism, COVID +. TECHNIQUE: Imaging Protocol: CT angiography of the chest was performed using pulmonary embolus arron col. Multi planar reconstructions were performed. CONTRAST MATERIAL: Intravenous: Omnipaque 350 Contrast volume: 100 cc COMPARISON: No exams were available for comparison FINDINGS: CHEST: PULMONARY ARTERIES: There are no intraluminal filling defects to suggest acute pulmonary emboli. LUNGS: There are patchy bilateral ground-glass infiltrates involving all lobes of both lungs, not ass ociated with pleural effusions. No cavitation. In addition, there is a 6 x 5 millimeter nodule in t he lingular segment of the left lung. No focal findings in the trachea and mainstem bronchi.. MEDIASTINUM: There is no hilar nor mediastinal adenopathy. Visualized thyroid unremarkable. CARDIAC: There are sternotomy wires. Heart size upper normal. No pericardial effusion. Caliber tho racic aorta is within normal limits. There is no significant shift of the interventricular septum. PARTIALLY VISUALIZED UPPERMOST ABDOMEN: No obvious findings OSSEOUS: No significant osseous lesions.. IMPRESSION: 1. No evidence of acute pulmonary emboli. No evidence of pulmonary infarction.No pleural effusions. No intrathoracic adenopathy 2. Main finding here is patchy infiltrates involving both lungs, suspicious for Covid-19. Report called by myself to the medical floor 07/25/2021 2:38 p.m. RADIATION DOSE DELIVERED: 756.93mGy.cm Total DLP DATA REPOSITORY: All CT scans at this facility are submitted to the National Radiology Data Registry (NRDR) Dose Index Registry (DIR) with the [employer] (ACR). RADIATION OPTIMIZATION: All CT scans at this facility use at least one of these dose optimization te chniques: automated exposure control; mA and/or kV adjustment per patient size (includes targeted exa ms where dose is matched to clinical indication); or iterative reconstruction.
--- NOTE | 2021-07-25 | DI.US_ITS ---
APPROVED REPORT EXAM: Comprehensive 2D, Doppler, and color-flow Echocardiogram Patient Location: In-Patient Room/Bed: [address] Finisher: Ida Perry RDCS (AE) Indications: ?Myocarditis, Hypotension, COVID Other Information Study Quality: Poor. Technically limited study due to body habitus. Conclusion Technically difficult study The left ventricle is normal in wall thickness and chamber size. Estimated ejection fraction is appr oximately 45%. Septal motion is paradoxic consistent with known LBBB The right ventricle is not well visualized but is probably normal in size The left atrium is normal in size. The right atrium is not well visualized There is aortic valve sclerosis without any hemodynamic findings Overall the echocardiogram appears similar to one reported at [facility] in 2019 Wall motion Left Ventricle The left ventricle is normal size. Left ventricular systolic function is mildly decreased. There is n ormal left ventricular wall thickness. Septal motion consistent with LBBB There is no ventricular sep moe defect visualized. LVEF is 45%. Right Ventricle Right ventricle is not well visualized. Right ventricular systolic function could not be assessed. Th e RVSP is 19.6 mmHg. Right ventricle is hypertrophied. Atria The left atrium size is normal. Right atrium is not well visualized. The interatrial septum is intact with no evidence for an atrial septal defect. Aortic Valve The Aortic valve is sclerotic. Aortic valve is probably trileaflet. There is no aortic valvular steno sis. No aortic regurgitation is present. Mitral Valve Mild mitral annular calcification. No evidence of mitral valve stenosis. Trace mitral regurgitation. Tricuspid Valve The tricuspid valve is normal in structure. There is no tricuspid valve stenosis. Trace tricuspid reg urgitation. Pulmonic Valve The pulmonary valve is normal in structure. There is no pulmonic valvular stenosis. Trivial pulmonic regurgitation. Great Vessels The aortic root is normal in size. The ascending aorta is normal in size. IVC is normal in size and c ollapses >50% with inspiration. Pericardium There is no pericardial effusion. 2D Dimensions IVSD d PLAX 0.85 cm M: 0.6-1.2 LVPW d PLAX 0.85 cm M: 0.6 - 1.2 LVID d PLAX 5.61 cm M: 4.2 - 5.8 LVDs 4.65 cm M: 2.5 - 4.0 Ao Root d 2.79 cm M: 3.1 - 3.7 Ao Asc Diam d 2.84 cm M: 2.6 - 3.4 LV EF [facility] 35.0 % FS 16.90 % LV Diastology MV E' medial 0.078 (>0.07 m/s) E/A Ratio 1.2 LV E/e MED 7.40 (<14) MV E Vmax 0.58 (0.4-1.3 m/s) MV E' lateral 0.105 (>0.1 m/s) MV A Vmax 0.50 (0.4-1.3 m/s) LV E/e LAT 5.50 (<14) MV E/A Ratio 1.10 MV E/E' medial 7.40 MV E/E' lateral 5.51 Aortic Valve LVOT Area 3.57 cm2 AoV Area Vmax 2.39 cm2 LVOT Vmax 0.90 m/s AoV Area/ BSA (Vmax) 0.98 cm2/m2 LVOT Mean [place]. 0.67 m/s SERGIO Mean [place]. 2.47 cm2 LVOT Peak Grad 3.2 mmHg SERGIO Mean [place]. Index 1.01 cm2/m2 LVOT Mean Grad 2.0 mmHg LVOT VTI 0.145 m LVOT Diam s 2.10 cm AoV Vmax 1.34 m/s Velocity Ratio 0.67 AoV Mean [place]. 0.97 m/s AoV Peak Grad 7.1 mmHg LVOT SV 51.60 mL AoV Mean Grad 4.1 mmHg AoV VTI 0.201 m AoV Area VTI 2.57 cm2 AoV Area/ BSA (VTI) 1.05 cm/m2 Mitral Valve MV DT 226 (160-240 msec) MV PHT 65 msec MV Area PHT 3.36 cm2 MV VTI 0.261 m MV Area VTI 1.98 (4.0-6.0 cm2) Pulmonary Valve PV Vmax 1.43 (0.5-1.5 m/s) RVOT Peak Gr. 1.10 mmHg PV Peak Grad 8.2 mmHg RVOT Mean Gr. 0.50 mmHg PV Mean Grad 3.8 mmHg RVOT VTI 0.080 m PV VTI 0.199 m RVOT Vmax 0.52 m/s Tricuspid Valve TR Peak Grad 16.5 mmHg TR Vmax 2.04 m/s RA Pressure 3.00 mmHg RVSP (TR) 19.6 mmHg
[2021-07-25 07:55] LABS: HCT 50.8 % (40.0-50.0); HGB 16.2 g/dL (13.5-17.5); MCH 27.6 pg (27.0-33.0); MCHC 31.9 % (32.0-36.0); MCV 86.5 fL (80-95); MPV 9.7 fL (8.0-11.0); Platelet Count 333 10^3/uL (130-400); RBC 5.87 10^6/uL (4.36-5.78); RDW 14.5 % (11.8-14.1); RDW-SD 45.7 fL
[2021-07-25 08:10] LABS: BUN 38 mg/dL (7-18); CREATININE 1.3 mg/dL (0.70-1.30); Calcium 9.5 mg/dL (8.5-10.1); Chloride 101 mmol/L (98-107); Estimated GFR 55.75 (mL/min/1.73m2); Glucose 126 mg/dL (74-106); Magnesium 2.3 mg/dL (1.8-2.4); Potassium 4.7 mmol/L (3.5-5.1); Sodium 137 mmol/L (136-145); Troponin I < 0.05 ng/mL (<0.06)
[2021-07-25] MEDS: Budesonide/Formoterol 80/4.5 6.9 GM 60 PUFF INH IH ×2 (08:16→22:20)
[2021-07-25] MEDS: Ipratropium/Albuterol 4 GM 120 PUFF INH IH ×4 (08:18→22:17)
[2021-07-25] MEDS: Ascorbic Acid 500 MG TAB 1000 MG PO ×2 (08:48→22:16)
[2021-07-25] MEDS: Famotidine 20 MG TAB PO (08:48)
[2021-07-25] MEDS: Fexofenadine 180 MG TAB PO ×2 (08:48→22:16)
[2021-07-25] MEDS: Cholecalciferol (Vitamin D3) 1,000 UNIT TAB 1000 UNITS PO (08:48)
[2021-07-25] MEDS: Gabapentin 300 MG CAP 600 MG PO ×2 (08:49→22:16)
[2021-07-25] MEDS: Omega-3 Fatty Acids 1000 MG CAP 2000 MG PO (08:49)
[2021-07-25] MEDS: Dexamethasone 10 MG/ML VIAL 6 MG IVP (08:49)
[2021-07-25] MEDS: Atorvastatin 40 MG TAB PO (08:49)
[2021-07-25] MEDS: Multivitamin w/Minerals TAB 1 TAB PO (08:49)
[2021-07-25] MEDS: Normal Saline Flush 10 ML SYR IVP (08:49)
[2021-07-25] MEDS: Enoxaparin 40 MG/0.4 ML SYR SC (08:50)
--- NOTE | 2021-07-25 09:09 | PDOC.CMPRO ---
- If Service Date Differs Date of service: 07/25/21 Time of Service: 18:59 Care Management Progress Note S/O: CM spoke with Trevon over the phone since he remains on Covid-19 precautions. Trevon stated he does not believe he will need any services at home and, if [facility] His PCP is Dr. Trevon Alicea from the [place] in [place], [place]. Trevon wants to go home. Per RT, he is at his baseline for oxygen requirement. A walking assessment will be done by RT today. Additionally, Trevon has a wound follow up scheduled with [facility] in [place], [place]. CM continues to follow. A: Trevon is a 61 year old man admitted on 07/19/21 with Covid positive pneumonia P: Trevon will likely be discharged home, possibly with new home health services, when medically cleared. Discharge summary will be faxed to the [place] (F#[phone]) upon discharge. He will follow up with his PCP at the [facility] and his plan of care as prescribed. He will transport with his . CM will continue to support Shorty and assess for discharge planning concerns.
--- NOTE | 2021-07-25 10:58 | W.CARDCONSUL ---
Date of service: 07/25/21 Time of Service: 10:58 Assessment and Plan Assessment and plan (1) LBBB (left bundle branch block): Status: Chronic (2) COVID: Status: Acute History of Present Illness History of Present Illness Chief Complaint: Covid pneumonia Narrative: This is a 61-year-old man who was admitted to the hospital with Covid pneumonia. Cardiac opinion is requested regarding whether or not the patient may or may not have Covid myocarditis. He was not interviewed or examined. The chart was reviewed as was prior testing from [facility], laboratory studies, and an echocardiogram here Reportedly he has a chronic left bundle branch block. Echocardiography from 2019 documented in the [facility] medical record reported an ejection fraction of 45% with global hypokinesis Laboratory is notable for a negative troponin, less than 0.05 An echocardiogram was updated. This shows an ejection fraction of approximately 45%, similar to that described previously. There is no hemodynamically significant valvular disease. Overall I think the diagnosis is Covid myocarditis is extremely unlikely Please do not hesitate to contact me if additional questions or concerns excess Consults Consult date: 07/25/21 Requesting physician: Yesenia Arrieta [facility] Medical History (Updated 07/20/21 @ 13:53 by Yesenia Arrieta MD) CAD (coronary artery disease) Chronic systolic CHF (congestive heart failure) LVEF 45% per echo 2019 COPD (chronic obstructive pulmonary disease) (~09/07/19) Diabetes mellitus (~09/07/19) Hypertension (~09/07/19) LBBB (left bundle branch block) since at least 2019 Obesity ALEJANDRA (obstructive sleep apnea) (~09/07/19) Restless leg Sciatic leg pain Social History Smoking/Tobacco Use Status: Former Tobacco Use Smoking risk assessment performed?: Yes Results Last Vital Signs Temp 35.6 C L 07/25/21 08:46 Pulse 74 07/25/21 08:46 Resp 18 07/25/21 08:46 BP 97/64 L 07/25/21 08:46 Pulse Ox 97 07/25/21 08:46 Labs Result diagrams: 07/25/21 07:40 07/25/21 07:40 Labs: Laboratory Results - last 24 hr 07/25/21 07/25/21 07:40 07:40 WBC 15.50 H RBC 5.87 H Hgb 16.2 Hct 50.8 H MCV 86.5 MCH 27.6 MCHC 31.9 L RDW 14.5 H Plt Count 333 MPV 9.7 Sodium 137 Potassium 4.7 Chloride 101 Carbon Dioxide 28.0 Anion Gap 8.0 BUN 38 H Creatinine 1.3 Estimated GFR/1.73 m2 55.75 Glucose 126 H Calcium 9.5 Magnesium 2.3 Troponin I < 0.05
[2021-07-25] MEDS: Insulin Aspart 300 UNITS/3 ML PEN SC ×3 (12:02→22:17)
[2021-07-25] MEDS: Lactated Ringers 500 ML IV (13:45)
[2021-07-25] MEDS: Normal Saline - Diluent 50 ML VIAL IV (14:14)
[2021-07-25] MEDS: Omnipaque 350 MG/ML 100 ML BTL IJ (14:14)
--- NOTE | 2021-07-25 17:54 | PGE_ITS ---
Date of Service Date of service: 07/25/21 Time of Service: 16:30 Assessment and Plan Assessment and plan (1) Pneumonia due to COVID-19 virus: Status: Acute Assessment and plan: Improved. On 2L of O2 by PR. Continue to wean O2 and to use CPAP at night (his own). Continue dexamethasone, and baricitinib. Hypotension is likely the side effect of remdesivir. There is no evidence of myocarditis. Can go home when BP better. Supplement Vitamin C, D. (2) Hypotension: Status: Acute Assessment and plan: Likely due to Remdesivir. The patient's echo is unchanged from prior. His CTA chest is negative for PE. Discussed with pharmacy: half-life is 27 hrs, so we should start to see improvement hopefully tomorrow. A case study looking at side effect of remdesivir in 1 patient stated that the cardiac side effects were gone in 3 days. (3) Acute respiratory failure with hypoxia: Status: Acute Assessment and plan: As above (4) ALEJANDRA (obstructive sleep apnea): Status: Chronic Assessment and plan: Continue CPAP (with settings adjusted based on current O2 requirement). (5) LBBB (left bundle branch block): Status: Chronic Assessment and plan: This was reviewed with [facility] by [facility]: LBBB is old. Troponin negative and was negative at [facility]. Follow up as outpatient. Continue home therapy (fish oil, statin). We are holding BB. (6) COPD (chronic obstructive pulmonary disease): Status: Chronic Assessment and plan: Not clearly in acute exacerbation. Will monitor. On trelegy at home. Continue symbicort +combivent here. (7) Acute kidney injury superimposed on chronic kidney disease: Status: Acute Assessment and plan: Improved. Holding home Waqas-i (8) Diabetes mellitus: Status: Chronic Assessment and plan: Continue to hold metformin/glipizide. Cover with SSI. (9) Hemoptysis: Status: Resolved Assessment and plan: PE ruled out by CTA at [facility], per admitting provider. We again ruled it out today. No recurrences here. Continue to monitor. Tolerating fish oil and sq enoxaparin. (10) Discharge planning issues: Status: Acute Assessment and plan: Full code Anticipate discharge home tomorrow with his active O2 prescription. (11) DVT prophylaxis: Status: Acute Assessment and plan: Enoxaparin SC Subjective Subjective Interval history since last seen: Has been hypotensive all morning. BP did improve to 110/75 this evening after receiving a bolus of LR. The patient states he is completely asymptomatic. He denies dizziness, chest pain, shortness of breath, nausea. He agrees to stay through tomorrow. I discussed with him that I felt that his low BP was due to remdesivir's side effect. Exam Narrative Exam Narrative: General: Pleasant middle-aged male who is sitting in a chair on 2L of O2 by NC HEENT: EOMI, MMM Heart: RRR, no m/r/g Lungs: CTAB Abdomen: soft, nontender, nondistended Extremities: no edema BLE's Objective Last Vital Signs Temp 36.3 C L 07/25/21 17:26 Pulse 79 07/25/21 17:26 Resp 18 07/25/21 17:26 BP 110/75 07/25/21 17:26 Pulse Ox 92 07/25/21 17:26 Laboratory Results - last 24 hr 07/25/21 07/25/21 07:40 07:40 WBC 15.50 H RBC 5.87 H Hgb 16.2 Hct 50.8 H MCV 86.5 MCH 27.6 MCHC 31.9 L RDW 14.5 H Plt Count 333 MPV 9.7 Sodium 137 Potassium 4.7 Chloride 101 Carbon Dioxide 28.0 Anion Gap 8.0 BUN 38 H Creatinine 1.3 Estimated GFR/1.73 m2 55.75 Glucose 126 H Calcium 9.5 Magnesium 2.3 Troponin I < 0.05
[2021-07-25] MEDS: rOPINIRole 1 MG TAB 4 MG PO (22:16)
[2021-07-25] MEDS: Melatonin 3 MG TAB PO (22:16)
[2021-07-25] MEDS: Acetaminophen 325 MG TAB 650 MG PO (22:16)
[2021-07-25] MEDS: Nystatin POWDER 60 GM JAR TP (22:17)
[2021-07-26 00:39] VITALS: BP 104/59; PULSE 57; RESP 16; TEMP 36; O2SAT 92
[2021-07-26 05:11] VITALS: BP 139/84; PULSE 66; RESP 18; TEMP 35.9; O2SAT 96
[2021-07-26] MEDS: Ipratropium/Albuterol 4 GM 120 PUFF INH IH (07:52)
[2021-07-26] MEDS: Budesonide/Formoterol 80/4.5 6.9 GM 60 PUFF INH IH (07:53)
--- NOTE | 2021-07-26 08:00 | RESPIRATORY ---
Walked with pt this morning to assess progress. Resting on RA: HR:61 RR:17 SpO2:92% Walking on RA: HR:72 RR:18 SpO2:88% after 50 feet, placed on 1L O2 Walking on 1L: HR:96 RR:20 SpO2:92 Pt walking from window to door in room multiple times with no complaints of pain or SOB. Total distance walked: 300ft Pt recovered to resting on room air within 2 minutes with vitals: HR: 68, RR:16, SpO2:93%. Pt states that he feels much better. Pt's home prescription is up to 2L O2. Pt has full portable O2 tank ready in room for discharge.
[2021-07-26 08:30] VITALS: O2SAT 100
[2021-07-26 08:33] VITALS: BP 128/86; PULSE 69; RESP 16; TEMP 35.6; O2SAT 100
[2021-07-26] MEDS: Ascorbic Acid 500 MG TAB 1000 MG PO (08:40)
[2021-07-26] MEDS: Famotidine 20 MG TAB PO (08:40)
[2021-07-26] MEDS: Gabapentin 300 MG CAP 600 MG PO (08:41)
[2021-07-26] MEDS: Cholecalciferol (Vitamin D3) 1,000 UNIT TAB 1000 UNITS PO (08:41)
[2021-07-26] MEDS: Fexofenadine 180 MG TAB PO (08:41)
[2021-07-26] MEDS: Dexamethasone 10 MG/ML VIAL 6 MG IVP (08:41)
[2021-07-26] MEDS: Omega-3 Fatty Acids 1000 MG CAP 2000 MG PO (08:41)
[2021-07-26] MEDS: Atorvastatin 40 MG TAB PO (08:41)
[2021-07-26] MEDS: Enoxaparin 40 MG/0.4 ML SYR SC (08:41)
[2021-07-26] MEDS: Multivitamin w/Minerals TAB 1 TAB PO (08:41)
[2021-07-26] MEDS: Normal Saline Flush 10 ML SYR IVP (08:42)
--- NOTE | 2021-07-26 09:08 | PDOC.CMDIS ---
- If Service Date Differs Date of service: 07/26/21 Time of Service: 09:08 LACE Index Scoring Tool - Questions: Length of Stay (in days): 7 - 13 Acuity (Admit via E.D.?): Yes Comorbidities: Diabetes w/o Complication, Congestive Heart Failure, Chronic Pulmonary Disease E.D. Visits: 0 - Answers: Total Score: 13 Risk of Readmission: High Risk Care Management Discharge Reason for Hospitalization: Covid Pneumonia Discharge Plan: Trevon will likely be discharged home, possibly with new home health services, when medically cleared. Discharge summary will be faxed to the [facility] (F#[phone]) upon discharge with specific recommendations for CPAP settings per RT and MD. He will follow up with his PCP at the [facility] and his plan of care as prescribed. He will transport with his via private vehicle. Patient/Family Education Needs: Review discharge instructions, discuss Ask Me Three.
[2021-07-26 10:27] VITALS: PULSE 90
--- NOTE | 2021-07-26 11:21 | W.PM.DS.N ---
Date of service: 07/26/21 Time of Service: 11:21 DS: Diagnosis Discharge Diagnosis (1) Pneumonia due to COVID-19 virus: Status: Acute (2) Hypotension: Status: Suspected Asessment and Plan: Side effect of remdesivir. (3) Acute respiratory failure with hypoxia: Status: Resolved (4) ALEJANDRA (obstructive sleep apnea): Status: Chronic (5) LBBB (left bundle branch block): Status: Chronic (6) COPD (chronic obstructive pulmonary disease): Status: Chronic (7) Acute kidney injury superimposed on chronic kidney disease: Status: Resolved (8) Diabetes mellitus: Status: Chronic (9) Hemoptysis: Status: Resolved Discharge Plan Disposition Patient Disposition: HOME Condition: Good Discharge Details Reason For Visit: Covid Positive Pneumonia Admit Date/Time: 07/19/21 19:59 Admit Provider: Trevon Bee Attending Provider: Trevon Bee Primary Care Provider: Trevon Alicea Hospital Course Hospital Course: Mr Ahn is a 61 year old male with PMHx of COPD, prior oxygen requirement (2L of O2 at home, though the patient was not using it), ALEJANDRA on BiPAP therapy, NIDDM2, HTN, CKD, obesity with BMI of 37.4, who was vaccinated against COVID-19 [address] [facility] from [facility] ED with acute hypoxic respiratory failure due to COVID-19 pneumonia. He had reported hemoptysis to [facility] and had ruled out for a PE in their ED. He did not have recurrent hemoptysis here. He required up to 6 L of O2 by MS and now needed to have his BiPAP settings adjusted (actually needed CPAP with O2 bled in). While he was initially admitted to medical surgical floor, because of his high oxygen requirement, he was transferred to the ICU on 07/20/21. H He was treated with dexamethasone, remdesivir, and baricitinib. He showed steady improvement in his symptoms and was transferred back to medical surgical floor on 07/22/21. His hospitalization was complicated by development of hypotension, which was most likely due to a side effect of remdesivir. His BPs are now improving (the latest is 128/86), but his BP meds remain on hold for the next 48 hrs at which point remdesivir should be out of his system. We ruled out PE and myocarditis. He is ready to be discharged home today. His oxygen requirement at rest is room air (saturates 92%), and on ambulation it is 1L (desaturates to 88% on RA; saturates 92% on activity). He is being discharged home on CPAP rather than BiPAP with pressure of 11 and 1L of O2 bled in. This will need to be followed up closely with the [facility] respiratory therapy service/sleep medicine. He will need to complete a steroid taper as prescribed. 45 minutes were spent on care for patient as well as on completion of his discharge instructions and summary on day of discharge. Home Meds and New Rx's Prescriptions: New famotidine 20 mg Tablet 20 mg PO DAILY Qty: 0 RF: 0 Combivent Respimat 20-100 mcg/actuation Mist 1 puff inhalation QID PRN PRN (Reason: shortness of breath) Qty: 4 RF: 0 dexamethasone 4 mg tablet See Rx Instructions .ROUTE .COMPLEX Qty: 3 RF: 0 Continued acetaminophen 500 mg Tablet 500 mg PO Q6H PRNRF: 0 fexofenadine [Ashanti Allergy] 180 mg Tablet 180 mg PO BID RF: 0 atorvastatin 40 mg Tablet 40 mg PO DAILY RF: 0 omega [id number]-fish oil [Fish Oil] 1,000 mg (120 mg-180 mg) Capsule PO BID RF: 0 gabapentin 300 mg Capsule 600 mg PO BID RF: 0 glipizide 10 mg Tablet 20 mg PO HS RF: 0 hydrochlorothiazide 25 mg Tablet 25 mg PO DAILY RF: 0 lisinopril 40 mg Tablet 40 mg PO DAILY RF: 0 metformin 500 mg Tablet 500 mg PO BID RF: 0 metoprolol tartrate 50 mg Tablet 150 mg PO BID RF: 0 Multi Vitamin 9 mg iron/15 mL Liquid See Rx Instructions .ROUTE .COMPLEX RF: 0 nitroglycerin [Nitrostat] 0.4 mg Tablet, Sublingual 0.4 mg SUBLINGUAL Q5-15M PRNRF: 0 omeprazole 20 mg Capsule,Delayed Release(Dr/Ec) 20 mg PO DAILY RF: 0 albuterol sulfate [ProAir HFA] 90 mcg/actuation Hfa Aerosol Inhaler 2 puff INHALATION BID PRNRF: 0 ropinirole 2 mg Tablet 4 mg PO QHS RF: 0 tamsulosin 0.4 mg Capsule 0.4 mg PO DAILY RF: 0 Trelegy Ellipta 100-62.5-25 mcg Blister With Device 1 inh INHALATION DAILY RF: 0 cholecalciferol (vitamin D3) [Vitamin D3] 25 mcg (1,000 unit) Tablet 25 mcg PO DAILY RF: 0 Discharge Instructions Instructions: Dexamethasone (By mouth), Hypotension (DC), COVID-19 (Coronavirus Disease 2019) (DC) Additional Instructions: You should use 1 L of O2 by nasal canula when ambulating. You do not need oxygen at rest. You should sleep with your CPAP machine with the settings of pressure of 11 and 1L of O2 bled in. Return to the hospital with any fever, bleeding, chest pain, shortness of breath. You should continue to self-isolate for 48 hrs. You should continue to hold your blood pressure medications for the next 48 hrs. When resuming them, resume them one at a time, per day. Your blood pressure medications are: HCTZ, lisinopril, and metoprolol. Finish your steroids as prescribed. YOu should not smoke. Return to the hospital with any fever, bleeding, chest pain, shortness of breath. Follow up with your PCP in 1-2 weeks and with the [facility] respiratory therapy for the new CPAP setting adjustment. Stand Alone Forms: Nursing Discharge Form Referrals: Trevon Alicea [Primary Care Provider] - 08/13/21 11:30 am Activity:: Activity as Tolerated Equipment/Supplies:: No Equipment Needed Diet:: As Tolerated Discharge Orders Discharge Orders: Discharge Order (Routine); Ordered 07/26/21 Ordered By: Yesenia Arrieta DS: Summary Time Spent with Patient providing and/or coordinating discharge services: Greater than 30 minutes Status at Discharge Functional status at discharge: independent ambulation Overall status at discharge: patient is back to baseline Mental Status: mental status grossly normal Speech and Movement: speech and movement normal Mood: congruent mood Affect: normal affect Exam Narrative Exam Narrative: Visit was completed over the phone due to the patient's stability and diagnosis of COVID-19. No dyspnea/tachypnea, preserved mental status, appropraite speech pattern/content. Psych Mental Status: mental status grossly normal Speech and Movement: speech and movement normal Mood: congruent mood Affect: normal affect DS: Data Vitals/I&O Vitals and I&O: Vital Signs Temperature 35.6 C L 07/26/21 08:33 Temperature Source Tympanic 07/26/21 08:33 Pulse 90 07/26/21 10:27 Pulse Rhythm Regular 07/26/21 08:30 Pulse 74 07/22/21 14:01 Respiratory Rate 16 07/26/21 08:33 Respiratory Effort Non-Labored 07/26/21 08:30 Respiratory Depth Normal 07/26/21 08:30 Respiratory Pattern Normal 07/26/21 08:30 Blood Pressure 128/86 07/26/21 08:33 Blood Pressure Mean 84 07/22/21 14:01 Blood Pressure Position Sitting 07/22/21 09:30 Pulse Oximetry 100 07/26/21 08:33 Oxygen Delivery Method Room Air 07/26/21 08:33 Oxygen Flow Rate 0 07/26/21 08:33 Fraction of Inspired Oxygen (FIO2) 35 07/20/21 09:36 Pain Level 0 07/26/21 08:33 Comment 07/24/21 12:24 Intake & Output 07/25/21 07/25/21 07/26/21 11:59 23:59 11:59 Intake Total 300 / 680 380 / 680 300 / 300 Balance 300 / 680 380 / 680 300 / 300 Weight 124.965 kg Intake: Oral 300 / 680 380 / 680 300 / 300 Other: Urine Appearance Clear Clear Clear Comment Patient voiding independently as needed. Patient denies difficulty voiding. Patient independent to the bathroom. Patient denies GI/ problems. Data Completed and Pending Completed studies during hospitalization [Text1]: CTA chest 07/25/21: 1. No evidence of acute pulmonary emboli. No evidence of pulmonary infarction.No pleural effusions. No intrathoracic adenopathy 2. Main finding here is patchy infiltrates involving both lungs, suspicious for Covid-19. Echo: Technically difficult study The left ventricle is normal in wall thickness and chamber size. Estimated ejection fraction is approximately 45%. Septal motion is paradoxic consistent with known LBBB The right ventricle is not well visualized but is probably normal in size The left atrium is normal in size. The right atrium is not well visualized There is aortic valve sclerosis without any hemodynamic findings Overall the echocardiogram appears similar to one reported at [facility] in 2019 [facility] Medical History (Updated 07/26/21 @ 11:22 by Yesenia Arrieta MD) CAD (coronary artery disease) Chronic systolic CHF (congestive heart failure) LVEF 45% per echo 2019 COPD (chronic obstructive pulmonary disease) (~09/07/19) Diabetes mellitus (~09/07/19) Hypertension (~09/07/19) LBBB (left bundle branch block) since at least 2019 Obesity ALEJANDRA (obstructive sleep apnea) (~09/07/19) Restless leg Sciatic leg pain Social History Smoking/Tobacco Use Status: Former Tobacco Use Smoking risk assessment performed?: Yes
== END 2021-07-26 12:15 | disposition home or self-care (01) | DRG 177 ==
LOC: MS 07-20 02:06 → ICU 07-22 10:06 → MS 07-22 14:36
PROVIDERS: General Practice; Internal Medicine; Admitting Provider Family Medicine; PCP Nurse Practitioner Family; Visit Provider Family Medicine
DX: U07.1 COVID-19 (principal); J12.82 Pneumonia due to coronavirus disease 2019; J96.01 Acute respiratory failure with hypoxia; R04.2 Hemoptysis; J44.0 Chronic obstructive pulmonary disease with (acute) lower respiratory infection; N17.9 Acute kidney failure, unspecified; I44.7 Left bundle-branch block, unspecified; E66.9 Obesity, unspecified; E11.22 Type 2 diabetes mellitus with diabetic chronic kidney disease; I25.10 Atherosclerotic heart disease of native coronary artery without angina pectoris; G47.30 Sleep apnea, unspecified; I12.9 Hypertensive chronic kidney disease with stage 1 through stage 4 chronic kidney disease, or unspecified chronic kidney disease; G25.81 Restless legs syndrome; M54.30 Sciatica, unspecified side; Z87.891 Personal history of nicotine dependence; Z68.37 Body mass index [BMI] 37.0-37.9, adult; I95.2 Hypotension due to drugs; T37.5X5A Adverse effect of antiviral drugs, initial encounter
CPT/HCPCS: 36415; 71275; 80048; 80053; 80076; 82306; 82550; 82805; 84145; 85027; 93306; 94618; 94640; 99221; J1650; 36600; 82728; 83615; 83735; 83880; 84132; 84443; 84484; 85025; 85379; 85610; 85730; 86140; 94660; 94667; 99223; 99231; 99232; 99233; 99239; 99291; J1100; J3490; J8540

== ENCOUNTER → 2021-07-25 09:18 | Outpatient (BNVA) | payer MEDICARE, MEDICAID, SELFPAY | PROVIDERS: PCP Nurse Practitioner Family; Referring Provider Nurse Practitioner Family; Visit Provider Internal Medicine Cardiovascular Disease | DX: R69 Illness, unspecified (principal) ==